=== PATIENT | female | born 1985 | race African-American/Black ===

== ENCOUNTER 2016-06-25 13:45 | Inpatient (IN) | payer OTHER ==
[2016-06-25 15:52] VITALS: BMI 32.3
--- NOTE | 2016-06-25 16:32 | PN ---
[facility] Progress Note Note: PT HERE FOR DETOX BUT WITH TACHYCARDIA, BLOOD-SHOT EYES, SLIGHT ELEVATION OF BP , AND ALCOHOL INTOXICATION. PT STATES HAD CHEST PAINS YESTERDAY BUT SAYS NOT FEELING IT AT THIS TIME. Vital Signs Temperature 97.2 F L 06/25/16 15:50 Pulse Rate 160 H 06/25/16 15:50 Respiratory Rate 20 06/25/16 15:50 Blood Pressure 131/86 06/25/16 15:50 O2 Sat by Pulse Oximetry (%) IVETT:0.203. WAS 0.177 ON ARRIVAL(BUT PT WENT OUTSIDE LATER DRINKING MORE). LAST BP 141//95 PLAN:TRANSFER TO [facility] FOR STABILIZATION AND CLEARANCE VIA AMBULANCE BEFORE DETOX ENGAGEMENT. PT MAY RETURN TO [facility] TO START DETOX AFTER CLEARANCE. SPOKE TO DR MORAN AT [facility] AND WILL ACCEPT THIS PT.
--- NOTE | 2016-06-25 21:43 | HP ---
CIWA Score - CIWA Score Nausea/Vomitin-Mild Nausea/No Vomiting Muscle Tremors: 4-Moderate,w/Arms Extend Anxiety: 4-Mod. Anxious/Guarded Agitation: 4-Moderately Restless Paroxysmal Sweats: 1-Minimal Palms Moist Orientation: 0-Oriented Tacttile Disturbances: 0-None Auditory Disturbances: 0-None Visual Disturbances: 0-None Headache: 2-Mild CIWA-Ar Total Score: 16 Admission ROS BHS - HPI Chief Complaint: withdrawal sx Allergies/Adverse Reactions: Allergies Allergy/AdvReac Type Severity Reaction Status Date / Time No Known Allergies Allergy Verified 06/25/16 21:32 History of Present Illness: 31 years old female with long history of alcohol nicotine dependence, has depression, recent significant close friend family is admitted to detox Exam Limitations: No Limitations - Ebola screening Have you traveled outside of the country in the last 21 days: No Have you had contact with anyone from an Ebola affected area: No Have you been sick,other than usual withdrawal symptoms: No Do you have a fever: No - Review of Systems Constitutional: Chills, Changes in sleep, Weight Stable EENT: reports: No Symptoms Reported Respiratory: reports: No Symptoms reported Cardiac: reports: Palpitations GI: reports: Nausea, Poor Fluid Intake, Abdominal cramping : reports: No Symptoms Reported Musculoskeletal: reports: No Symptoms Reported Integumentary: reports: Change in Color (abscess) Neuro: reports: Tremors Endocrine: reports: No Symptoms Reported Hematology: reports: No Symptoms Reported Psychiatric: reports: Judgement Intact, Orientated x3, Anxious, Depressed Other Systems: Reviewed and Negative Patient History - Patient Medical History Hx Anemia: Yes Hx Asthma: No Hx Chronic Obstructive Pulmonary Disease (COPD): No Hx Cancer: No Hx Cardiac Disorders: No Hx Congestive Heart Failure: No Hx Hypertension: No Hx Hypercholesterolemia: No Hx Pacemaker: No HX Cerebrovascular Accident: No Hx Seizures: No Hx Dementia: No Hx Diabetes: No Hx Gastrointestinal Disorders: No Hx Liver Disease: No Hx Genitourinary Disorders: No Hx Sexually Transmitted Disorders: No Hx Renal Disease (ESRD): No Hx Thyroid Disease: No Hx Human Immunodeficiency Virus (HIV): No Hx Hepatitis C: No Hx Depression: Yes (8 years ago gun) Hx Suicide Attempt: Yes Hx Bipolar Disorder: No Hx Schizophrenia: No - Patient Surgical History Past Surgical History: No - PPD History Previous Implant?: Yes Documented Results: Negative w/o proof Implanted On Prior R Admission?: No PPD to be Administered?: Yes - Reproductive History Patient is a Female of Child Bearing Age (11 -55 yrs old): Yes Last Menstrual Period: 06/13/16 Patient : No - Smoking Cessation Smoking history: Current every day smoker Have you smoked in the past 12 months: Yes Aproximately how many cigarettes per day: 20 Cigars Per Day: 0 Hx Chewing Tobacco Use: No Initiated information on smoking cessation: Yes 'Breaking Loose' booklet given: 06/25/16 - Substance & Tx. History Hx Alcohol Use: Yes Hx Substance Use: No Substance Use Type: Alcohol Hx Substance Use Treatment: Yes - Substances Abused Alcohol Route: Smoking Frequency: Daily Amount used: LIQUOR- 1 GALLON Age of first use: 18 Date of Last Use: 06/25/16 Marijuana/Hashish Route: Smoking Frequency: Daily Amount used: 2 JOINTS Age of first use: 18 Date of Last Use: 06/25/16 Family Disease History - Family Disease History Family Disease History: Diabetes: Grandparent, Father, Mother, Heart Disease: Grandparent, Father, Mother, CA: Grandparent, Father, Mother Admission Physical Exam BHS - Vital Signs Vital Signs: Vital Signs - 24 hr 06/25/16 06/25/16 15:50 15:52 Temperature 97.2 F L 96.7 F L Pulse Rate 160 H 96 H Respiratory 20 20 Rate Blood Pressure 131/86 108/72 - Physical General Appearance: Yes: Nourished, Appropriately Dressed, Mild Distress, Alcohol on Breath, Tremorous, Irritable, Sweating, Anxious HEENTM: Yes: Hearing grossly Normal, Normal ENT Inspection, Normocephalic, Normal Voice Respiratory: Yes: Chest Non-Tender, Lungs Clear, Normal Breath Sounds, No Respiratory Distress, No Accessory Muscle Use Neck: Yes: Supple, Trachea in good position Breast: Yes: Breasts Symetrical Cardiology: Yes: Regular Rhythm, S1, S2, Tachycardia Abdominal: Yes: Non Tender, Soft Genitourinary: Yes: Within Normal Limits Back: Yes: Normal Inspection Musculoskeletal: Yes: full range of Motion, Gait Steady, Muscle Pain (left axillary) Extremities: Yes: Normal Range of Motion, Non-Tender, Tremors, Swelling (left axillary) Neurological: Yes: Alert, Motor Strength 5/5, Normal Response, Depressed Affect Integumentary: Yes: Warm, Erythema (abscess left axillary) Lymphatic: Yes: Within Normal Limits - Diagnostic (1) Alcohol dependence with uncomplicated withdrawal Current Visit: Yes Status: Acute (2) Nicotine dependence Current Visit: Yes Status: Acute Qualifiers: Nicotine product type: cigarettes Substance use status: in withdrawal Qualified Code(s): F17.213 - Nicotine dependence, cigarettes, with withdrawal (3) Depression (emotion) Current Visit: Yes Status: Suspected Qualifiers: Depression Type: dysthymia Qualified Code(s): F34.1 - Dysthymic disorder (4) Abscess Current Visit: Yes Status: Acute Comment: keflex Cleared for Admission S - Detox or Rehab [facility] Level of Care: Medically Managed Detox Regimen/Protocol: Librium [facility] Breath Alcohol Content Breath Alcohol Content: 0.177 Urine Pregancy Test - Result Urine Test Results: Negative- NO Line Present Urine Drug Screen - Results Drug Screen Negative: Yes
[2016-06-25] MEDS ORDERED: P-EPHED 60MG/TRIPROLIDI 2.5MG TABLET PO PRN (21:53)
[2016-06-25] MEDS ORDERED: NICOTINE POLACRILEX 2 MG GUM BC PRN (21:53)
[2016-06-25] MEDS ORDERED: MAGNESIUM CITRATE 300 ML BOTTLE PO PRN (21:53)
[2016-06-25] MEDS ORDERED: LOPERAMIDE HCL 2 MG CAPSULE PO PRN (21:53)
[2016-06-25] MEDS ORDERED: ACETAMINOPHEN 325 MG TABLET (FP) PO PRN (21:53)
[2016-06-25] MEDS ORDERED: MENTHOL/PHENOL 1 EACH UD MM PRN (21:53)
[2016-06-25] MEDS ORDERED: IBUPROFEN 400 MG TABLET (FP) PO PRN (21:53)
[2016-06-25] MEDS ORDERED: chlordiazePOXIDE HCL 25 MG CAPSULE PO PRN (21:53)
[2016-06-25] MEDS ORDERED: hydrOXYzine PAMOATE 50 MG CAPSULE (FP) PO PRN (21:53)
[2016-06-25] MEDS ORDERED: MAG HYDROX/AL HYDROX/SIMETH 30 ML UNIT-DOSE CUP PO PRN (21:53)
[2016-06-25] MEDS ORDERED: guaiFENesin/D-METHORPHAN HB 10 ML UNIT-DOSE CUPS PO PRN (21:53)
[2016-06-25] MEDS ORDERED: MAGNESIUM HYDROX 2400MG/30ML ORAL SUSPENSION 30 ML CUP PO PRN (21:53)
[2016-06-25] MEDS ORDERED: cloNIDine HCL 0.1 MG TABLET PO PRN (21:56)
[2016-06-25] MEDS ORDERED: ALBUTEROL SO4 6.7 GM HFA INHALER IH PRN (21:57)
[2016-06-25] MEDS: chlordiazePOXIDE HCL 25 MG CAPSULE PO SCH (22:56)
[2016-06-25] MEDS: THIAMINE HCL 100 MG TABLET (FP) PO SCH (22:56)
[2016-06-25] MEDS: diphenhydrAMINE HCL 50 MG CAPSULE PO PRN (22:58)
[2016-06-25] MEDS: CEPHALEXIN MONOHYDRATE 500 MG CAPSULE (UD) PO SCH (23:00)
[2016-06-26] MEDS: CEPHALEXIN MONOHYDRATE 500 MG CAPSULE (UD) PO SCH ×3 (06:07→17:21)
[2016-06-26] MEDS: chlordiazePOXIDE HCL 25 MG CAPSULE PO SCH ×4 (06:07→22:14)
[2016-06-26] MEDS ORDERED: PRENATAL VITAMINS W/ FOLIC ACID TABLET (FP) PO SCH (10:00)
[2016-06-26] MEDS ORDERED: NICOTINE 21 MG/24 HOURS TOPICAL PATCH TD SCH (10:00)
--- NOTE | 2016-06-26 10:16 | PN ---
S CIWA - CIWA Score Nausea/Vomitin Muscle Tremors: 3 Anxiety: 3 Agitation: 3 Paroxysmal Sweats: 1-Minimal Palms Moist Orientation: 0-Oriented Tacttile Disturbances: 1-Very Mild Itch/Numbness Auditory Disturbances: 1-Very Mild Visual Disturbances: 1-Very Mild Sensitivity Headache: 2-Mild CIWA-Ar Total Score: 18 BHS Progress Note (SOAP) Subjective: ALERT,IRRITABLE,ANXIOUS,INTERRUPTED SLEEP,TREMOR Objective: 06/26/16 10:14 Vital Signs Temperature 98.5 F 06/26/16 06:41 Pulse Rate 78 06/26/16 06:41 Respiratory Rate 18 06/26/16 06:41 Blood Pressure 98/68 06/26/16 06:41 O2 Sat by Pulse Oximetry (%) EKG NSR WITH SINUS ARRHYTHMIA 06/26/16 10:15 LABS PENDING Assessment: 06/26/16 10:15 WITHDRAWAL SYMPTOM Plan: CONTINUE DETOX,LABS PENDING
--- NOTE | 2016-06-26 15:26 | CONSULT ---
[facility] Psychiatric Consult - Data Date of interview: 06/26/16 Admission source: [facility] Identifying data: First admission to [facility] for this 31 y/o AA female seeking detox treatment on for alcohol and marijuana dependence.Patient is single without children,homeless,unemployed and supported on Public Assistance. Substance Abuse History: - Smoking Cessation. Smoking history: Current every day smoker. Have you smoked in the past 12 months: Yes. Aproximately how many cigarettes per day: 20. Cigars Per Day: 0. Hx Chewing Tobacco Use: No. Initiated information on smoking cessation: Yes. 'Breaking Loose' booklet given : 06/25/16. - Substance & Tx. History. Hx Alcohol Use: Yes. Hx Substance Use : No. Substance Use Type: Alcohol. Hx Substance Use Treatment: Yes. - Substances Abused. Alcohol. Route: Smoking. Frequency: Daily. Amount used : LIQUOR- 1 GALLON. Age of first use: 18. Date of Last Use: 06/25/16. Marijuana/Hashish. Route: Smoking. Frequency: Daily. Amount used: 2 JOINTS. Age of first use: 18. Date of Last Use: 06/25/16. Confirmed by patient in this interview. Medical History: Anemia,boils and sickle cell traits. Psychiatric History: Patient reports a history of 5-7 psychiatric hospitalizations in past four years,mostly at [facility].Diagnosed with MDD/Anxiety Disorder.Ms Lacy states that she used to be on psychotropic medications (names not recalled except for ambien).No OPD care.Has been off medications for months (own choice).Patient reports past history of suicide attempts via overdoses with medications. Physical/Sexual Abuse/Trauma History: No reported history of sexual abuse. Additional Comment: Drug Screen is negative. Mental Status Exam - Mental Status Exam Alert and Oriented to: Time, Place, Person Cognitive Function: Good Patient Appearance: Well Groomed Mood: Hopeful, Euthymic Affect: Appropriate, Normal Range Patient Behavior: Fatigued, Appropriate, Cooperative Speech Pattern: Clear, Appropriate Voice Loudness: Normal Thought Process: Intact, Goal Oriented Thought Disorder: Not Present Hallucinations: Denies Suicidal Ideation: Denies Homicidal Ideation: Denies Insight/Judgement: Poor Sleep: Poorly, Difficulty falling asleep Appetite: Good Muscle strength/Tone: Normal Gait/Station: Normal Psychiatric Findings - Problem List ([place] 1, 2,3) (1) Alcohol dependence with uncomplicated withdrawal Current Visit: Yes Status: Acute (2) Nicotine dependence Current Visit: Yes Status: Acute Qualifiers: Nicotine product type: cigarettes Substance use status: in withdrawal Qualified Code(s): F17.213 - Nicotine dependence, cigarettes, with withdrawal (3) Substance induced mood disorder Current Visit: Yes Status: Suspected (4) Insomnia Current Visit: Yes Status: Chronic - Initial Treatment Plan Initial Treatment Plan: Psychoeducation.Detoxification.Zolpidem 10 mg po hs prn.Patient made aware of risk of parasomnias.Patient agrees with this careplan.Observation.
--- NOTE | 2016-06-26 17:43 | EKG ---
Test Reason : Blood Pressure : / mmHG Vent. Rate : 087 BPM Atrial Rate : 087 BPM P-R Int : 168 ms QRS Dur : 098 ms QT Int : 388 ms P-R-T Axes : 069 027 031 degrees QTc Int : 466 ms NORMAL SINUS RHYTHM WITH SINUS ARRHYTHMIA NORMAL ECG WHEN COMPARED WITH ECG OF 25-JUN-2016 17:13, NO SIGNIFICANT CHANGE WAS FOUND Confirmed by ORIANA MCCLENDON MD ([id number]) on 06/26/2016 5:43:22 PM Referred By: Luis Manuel Confirmed By:ORIANA MCCLENDON MD
[2016-06-26] MEDS: diphenhydrAMINE HCL 50 MG CAPSULE PO PRN (22:14)
[2016-06-26] MEDS: THIAMINE HCL 100 MG TABLET (FP) PO SCH (22:14)
[2016-06-27] MEDS: chlordiazePOXIDE HCL 25 MG CAPSULE PO SCH (05:28)
[2016-06-27] MEDS: CEPHALEXIN MONOHYDRATE 500 MG CAPSULE (UD) PO SCH (05:28)
[2016-06-27 09:46] VITALS: BP 125/76; PULSE 100; TEMP 98.2
--- NOTE | 2016-06-27 09:54 | PN ---
S CIWA - CIWA Score Nausea/Vomitin Muscle Tremors: 3 Anxiety: 2 Agitation: 2 Paroxysmal Sweats: 1-Minimal Palms Moist Orientation: 0-Oriented Tacttile Disturbances: 1-Very Mild Itch/Numbness Auditory Disturbances: 1-Very Mild Visual Disturbances: 1-Very Mild Sensitivity Headache: 2-Mild CIWA-Ar Total Score: 16 BHS Progress Note (SOAP) Subjective: ALERT,IRRITABLE,ANXIOUS,INTERRUPTED SLEEP,TREMOR Objective: 06/27/16 09:52 Vital Signs Temperature 98.2 F 06/27/16 09:45 Pulse Rate 100 H 06/27/16 09:45 Respiratory Rate 18 06/27/16 09:45 Blood Pressure 125/76 06/27/16 09:45 O2 Sat by Pulse Oximetry (%) EKG NSR WITH SINUS ARRHYTHMIA Laboratory Last Values RPR Titer Nonreactive (NONREACTIVE) 06/26/16 06:00 Assessment: 06/27/16 09:53 WITHDRAWAL SYMPTOM Plan: CONTINUE DETOX,CBC,CMP IN AM
--- NOTE | 2016-06-27 10:47 | PN ---
[facility] Progress Note Note: PATIENT DID NOT WANT TO COMPLETE TREATMENT DUE TO PERSONAL PROBLEM,SEEN BY COUNSELOR,SIGNED RELEASE AMA,
--- NOTE | 2016-06-27 10:50 | DS ---
[facility] Detox Discharge Summary Admission Date: 06/25/16 Discharge Date: 06/27/16 - History Present History: Alcohol Dependence Additional Comments: PATIENT DID NOT WANT TO COMPLETE TREATMENT DUE TO PERSONAL PROBLEM,SEEN BY COUNSELOR,SIGNED RELEASE AMA Pertinent Past History: NICOTINE DEPENDENCE ABSCESS DEPRESSION - Physical Exam Results Vital Signs: Vital Signs Temperature 98.2 F 06/27/16 09:45 Pulse Rate 100 H 06/27/16 09:45 Respiratory Rate 18 06/27/16 09:45 Blood Pressure 125/76 06/27/16 09:45 O2 Sat by Pulse Oximetry (%) Pertinent Admission Physical Exam Findings: WITHDRAWAL SYMPTOM - Medication Discharge Medications: Ambulatory Orders NK [No Known Home Medication] 06/25/16 - AMA Did Patient Leave Against Medical Advice: Yes
[2016-06-27] MEDS ORDERED: chlordiazePOXIDE 5 MG CAPSULE PO SCH (23:00)
[2016-06-28] MEDS ORDERED: chlordiazePOXIDE HCL 10 MG CAPSULE PO SCH (23:00)
== END 2016-06-27 10:55 | disposition left against medical advice (07) | DRG 770 ==
LOC: YASAS 13:45 → Y6N 21:32
PROVIDERS: ADMIT Internal Medicine; ATTEND Internal Medicine
PROC: HZ2ZZZZ Detoxification Services for Substance Abuse Treatment (ICD-10-PCS; principal; 2016-06-27)
DX: F10.230 Alcohol dependence with withdrawal, uncomplicated (principal); F17.213 Nicotine dependence, cigarettes, with withdrawal; F12.10 Cannabis abuse, uncomplicated; F19.24 Other psychoactive substance dependence with psychoactive substance-induced mood disorder; G47.00 Insomnia, unspecified; L02.412 Cutaneous abscess of left axilla
CPT/HCPCS: 36415; 86593; 93005; 93010

== ENCOUNTER 2016-06-25 17:01 | Emergency (ER) | payer OTHER ==
[2016-06-25 17:10] VITALS: BP 137/81; PULSE 129; BMI 33.7
[2016-06-25] MEDS ORDERED: ASPIRIN 81 MG CHEWABLE TABLETS PO ONE (17:21)
[2016-06-25] MEDS ORDERED: ASPIRIN 81 MG CHEWABLE TABLETS ONE (17:44)
[2016-06-25 18:32] LABS: MCH 27.4 pg (25.7-33.7); MCHC 33.3 g/dl (32.0-36.0); MEAN CELL VOLUME 82.4 fl (80-96); MEAN PLT VOLUME 8.2 fl (7.5-11.1); NEUTROPHILS 64.1 % (42.8-82.8); PLATELET COUNT 440 K/MM3 (134-434); RDW 15.3 % (11.6-15.6); WHITE BLOOD COUNT 7.3 K/mm3 (4.0-10.0)
[2016-06-25 18:46] LABS: INR 0.97 (0.82-1.09); PROTHROMBIN TIME (PATIENT) 10.7 SEC (9.98-11.88)
[2016-06-25 18:57] LABS: ALBUMIN 4.3 g/dl (3.4-5.0); ANION GAP 15 (8-16); CALCIUM 9.2 mg/dL (8.5-10.1); CO2 23 mmol/L (21-32); GLUCOSE,RANDOM 83 mg/dL (74-106); MAGNESIUM 2.1 mg/dL (1.8-2.4)
--- NOTE | 2016-06-25 18:58 | PDOC ---
[id number] No Limitations - History of Present Illness Initial Comments: 06/25/16 18:58 Patient is a 31 year old female with significant past medical history of EtOH use who presents to the ED from alcohol detox for palpitations. Patient is unhappy to be here, she notes that she always experiences these palpitations. She states that her last drink was this morning. She notes that her friend yesterday and she is very depressed about it. Patient is asking to go back to detox. She denies any SOB, nausea, vomiting, fever, chills and headache. <Vira Fink - Last Filed: 06/25/16 19:08> <Dino Neville - Last Filed: 08/07/16 09:54> - General Chief Complaint: Chest Pain Stated Complaint: CHEST PAIN Time Seen by Provider: 06/25/16 17:21 Past History <Vira Fink - Last Filed: 06/25/16 19:08> - Psycho/Social/Smoking Cessation Hx Suicidal Ideation: No Smoking History: Never smoked <Dino Neville - Last Filed: 08/07/16 09:54> - Past Medical History Allergies/Adverse Reactions: Allergies Allergy/AdvReac Type Severity Reaction Status Date / Time No Known Allergies Allergy Verified 06/25/16 17:26 Home Medications: Ambulatory Orders Albuterol Sulfate Inhaler - [Ventolin HFA Inhaler -] 2 puff IH Q4H PRN #1 inhaler 06/27/16 Cephalexin Monohydrate [Keflex -] 500 mg PO Q6HPO #20 capsule 06/27/16 Review of Systems - Review of Systems Able to Perform ROS?: Yes Comments:: 06/25/16 19:00 GENERAL/CONSTITUTIONAL: No fever or chills. No weakness. HEAD, EYES, EARS, NOSE AND THROAT: No change in vision. No ear pain or discharge. No sore throat. CARDIOVASCULAR: +palpitations. No chest pain or shortness of breath. RESPIRATORY: No cough, wheezing, or hemoptysis. GASTROINTESTINAL: No nausea, vomiting, diarrhea or constipation. GENITOURINARY: No dysuria, frequency, or change in urination. MUSCULOSKELETAL: No joint or muscle swelling or pain. No neck or back pain. SKIN: No rash NEUROLOGIC: No headache, vertigo, loss of consciousness, or change in strength/ sensation. ENDOCRINE: No increased thirst. No abnormal weight change. HEMATOLOGIC/LYMPHATIC: No anemia, easy bleeding, or history of blood clots. ALLERGIC/IMMUNOLOGIC: No hives or skin allergy. <Vira Fink - Last Filed: 06/25/16 19:08> *Physical Exam - Vital Signs Last Vital Signs Temp Pulse Resp BP Pulse Ox 97.9 F 129 H 20 137/81 06/25/16 17:08 06/25/16 17:08 06/25/16 17:08 06/25/16 17:08 - Physical Exam Comments: 06/25/16 18:59 GENERAL: Awake, alert, and fully oriented, in no acute distress HEAD: No signs of trauma EYES: PERRLA, EOMI, sclera anicteric, conjunctiva clear ENT: Auricles normal inspection, hearing grossly normal, nares patent, oropharynx clear without exudates. Moist mucosa NECK: Normal ROM, supple, no lymphadenopathy, JVD, or masses LUNGS: Breath sounds equal, clear to auscultation bilaterally. No wheezes, and no crackles HEART: +Tachycardic, normal S1 and S2, no murmurs, rubs or gallops ABDOMEN: Soft, nontender, normoactive bowel sounds. No guarding, no rebound. No masses EXTREMITIES: Normal range of motion, no edema. No clubbing or cyanosis. No cords, erythema, or tenderness NEUROLOGICAL: Cranial nerves II through XII grossly intact. Normal speech, normal gait SKIN: Warm, Dry, normal turgor, no rashes or lesions noted. <Vira Fink - Last Filed: 06/25/16 19:08> - Vital Signs Last Vital Signs Temp Pulse Resp BP Pulse Ox 97.9 F 129 H 20 137/81 06/25/16 17:08 06/25/16 17:08 06/25/16 17:08 06/25/16 17:08 <Dino Neville - Last Filed: 08/07/16 09:54> Heart Score/ECG Review #1 06/25/16 19:[address] Neville Impression: sinus tachycardia vent rate 108 bpm <Vira Fink - Last Filed: 06/25/16 19:08> ED Treatment Course - LABORATORY CBC & Chemistry Diagram: 06/25/16 18:15 06/25/16 18:15 - ADDITIONAL ORDERS Additional order review: Laboratory Results 06/25/16 06/25/16 18:15 18:15 INR 0.97 Serum , Qual Negative 06/25/16 18:15 RBC 5.03 MCV 82.4 MCHC 33.3 RDW 15.3 MPV 8.2 Neutrophils % 64.1 Lymphocytes % 28.4 Monocytes % 5.5 Eosinophils % 1.0 Basophils % 1.0 - Medications Given in the ED: ED Medications Discontinued Medications Generic Name Dose Route Start Last Admin Trade Name Freq PRN Reason Stop Dose Admin Aspirin 162 mg 06/25/16 17:21 06/25/16 18:08 Asa - PO 06/25/16 17:22 162 mg ONCE ONE Administration <Vira Fink - Last Filed: 06/25/16 19:08> - LABORATORY CBC & Chemistry Diagram: 06/25/16 18:15 06/25/16 18:15 - ADDITIONAL ORDERS Additional order review: Laboratory Results 06/25/16 06/25/16 18:15 18:15 INR 0.97 Serum , Qual Negative 06/25/16 18:15 RBC 5.03 MCV 82.4 MCHC 33.3 RDW 15.3 MPV 8.2 Neutrophils % 64.1 Lymphocytes % 28.4 Monocytes % 5.5 Eosinophils % 1.0 Basophils % 1.0 - RADIOLOGY Radiology Studies Ordered: Category Date Time Status CHEST PA & LAT [RAD] Stat Radiology 06/25/16 17:22 Ordered - Medications Given in the ED: ED Medications Discontinued Medications Generic Name Dose Route Start Last Admin Trade Name Freq PRN Reason Stop Dose Admin Aspirin 162 mg 06/25/16 17:21 06/25/16 18:08 Asa - PO 06/25/16 17:22 162 mg ONCE ONE Administration <Dino Neville - Last Filed: 08/07/16 09:54> Medical Decision Making - Medical Decision Making 06/25/16 18:58 Patient is a 31 year old female with significant past medical history of EtOH use who presents to the ED from alcohol detox for palpitations. Patient is unhappy to be here and is requesting to go back to detox. Will order labs, EKG and CXR. Will reassess after the results are back. 06/25/16 19:04 Since my shift is over, I endorse continuation of care to Dr. Valdivia the overnight attending. <Vira Fink - Last Filed: 06/25/16 19:08> *DC/Admit/Observation/Transfer <Vira Fink - Last Filed: 06/25/16 19:08> - Attestations Physician Attestion: 06/25/16 18:58 I, Dr. Dino Neville, attest that this document has been prepared under my direction and personally reviewed by me in its entirety. I further attest, that it accurately reflects all work, treatment, procedures and medical decision -making performed by me. <Dino Neville - Last Filed: 08/07/16 09:54> Diagnosis at time of Disposition: Tachycardia - Discharge Dispostion Disposition: I.P. ALCOHOL/SUBS ABUSE REHAB Condition at time of disposition: Improved
[2016-06-25 19:02] LABS: ALK PHOS 88 U/L (45-117); BILIRUBIN,TOTAL 0.3 mg/dL (0.2-1.0); CREATININE 0.8 mg/dL (0.55-1.02); SGOT/AST 18 U/L (15-37); SGPT/ALT 21 U/L (12-78); TOT PROT 8.1 g/dl (6.4-8.2); TROPONIN I < 0.02 ng/ml (0.00-0.05)
[2016-06-25 19:21] VITALS: TEMP 99.2
--- NOTE | 2016-06-25 20:05 | PDOC ---
*Physical Exam - Vital Signs Last Vital Signs Temp Pulse Resp BP Pulse Ox 99.2 F 129 H 20 137/81 06/25/16 17:10 06/25/16 17:08 06/25/16 17:08 06/25/16 17:08 ED Treatment Course - LABORATORY CBC & Chemistry Diagram: 06/25/16 18:15 06/25/16 18:15 - ADDITIONAL ORDERS Additional order review: Laboratory Results 06/25/16 06/25/16 06/25/16 18:40 18:15 18:15 INR Sodium 142 Potassium 3.8 Chloride 104 Carbon Dioxide 23 Anion Gap 15 BUN 9 Creatinine 0.8 Creat Clearance w eGFR > 60 Random Glucose 83 Calcium 9.2 Magnesium 2.1 Total Bilirubin 0.3 AST 18 ALT 21 Alkaline Phosphatase 88 Creatine Kinase 85 Troponin I < 0.02 Total Protein 8.1 Albumin 4.3 Serum , Qual Negative Alcohol, Quantitative 240.2 H* 06/25/16 18:15 INR 0.97 Sodium Potassium Chloride Carbon Dioxide Anion Gap BUN Creatinine Creat Clearance w eGFR Random Glucose Calcium Magnesium Total Bilirubin AST ALT Alkaline Phosphatase Creatine Kinase Troponin I Total Protein Albumin Serum , Qual Alcohol, Quantitative 06/25/16 18:15 RBC 5.03 MCV 82.4 MCHC 33.3 RDW 15.3 MPV 8.2 Neutrophils % 64.1 Lymphocytes % 28.4 Monocytes % 5.5 Eosinophils % 1.0 Basophils % 1.0 - Medications Given in the ED: ED Medications Discontinued Medications Generic Name Dose Route Start Last Admin Trade Name Freq PRN Reason Stop Dose Admin Aspirin 162 mg 06/25/16 17:21 06/25/16 18:08 Asa - PO 06/25/16 17:22 162 mg ONCE ONE Administration *DC/Admit/Observation/Transfer Diagnosis at time of Disposition: Tachycardia - Discharge Dispostion Disposition: I.P. ALCOHOL/SUBS ABUSE REHAB Condition at time of disposition: Improved
--- NOTE | 2016-06-26 17:48 | EKG ---
Test Reason : Blood Pressure : / mmHG Vent. Rate : 108 BPM Atrial Rate : 108 BPM P-R Int : 168 ms QRS Dur : 092 ms QT Int : 346 ms P-R-T Axes : 058 038 024 degrees QTc Int : 463 ms SINUS TACHYCARDIA OTHERWISE NORMAL ECG NO PREVIOUS ECGS AVAILABLE Confirmed by ORIANA MCCLENDON MD ([id number]) on 06/26/2016 5:48:17 PM Referred By: Confirmed By:ORIANA MCCLENDON MD
== END 2016-06-25 20:54 | disposition other institution (70) ==
LOC: JER 17:01
DX: R00.0 Tachycardia, unspecified (principal); F10.220 Alcohol dependence with intoxication, uncomplicated; Y90.8 Blood alcohol level of 240 mg/100 ml or more
CPT/HCPCS: 36415; 71020-TC; 80053; 80307; 82550; 83735; 84484; 84703; 85025; 85610; 93005; 93010; 99283-25